=== PATIENT | male | born 1995 | race Caucasian/White ===

== ENCOUNTER 2018-11-05 12:30 | Emergency (ER) | payer OTHER ==
--- NOTE | 2018-11-05 13:10 | EDPHY ---
H & P Time Seen by Provider: 11/05/18 12:54 HPI/ROS: Chief complaint. Fever HPI. [age]-year-old male he was in the [facility] for 3 weeks. He returned to the [place] October 01. 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 He was exposed to mosquitos and did have at least 1 mosquito bite that he recalls. He was taking doxycycline while there and has continued for the 4 weeks since he has been back. He developed fever 2 nights ago. He has achiness and sweating. Fever to 102 degrees. Denies upper respiratory symptoms , sore throat, cough, abdominal pain, vomiting or diarrhea, shortness of breath , urinary symptoms, rash. Patient is concerned about malaria. Patient denies recent exposure to Infectious Disease. ROS 10 systems were reviewed and negative with the exception of the elements mentioned in the history of present illness Past Medical/Surgical History: Healthy Social History: Single, nonsmoker, no alcohol Smoking Status: Never smoked Physical Exam: General Appearance: Alert well-developed male mild distress vital signs show temp 37.2 degrees Eyes: Pupils equal and round no pallor or injection. ENT, tympanic membranes normal. Pharynx without injection. Respiratory: There are no retractions, lungs are clear to auscultation. Cardiovascular: Regular rate and rhythm. Gastrointestinal: Abdomen is soft and nontender, no masses, bowel sounds normal. Neurological: Awake and alert, sensory and motor exams grossly normal. Skin: Warm and dry, no rashes. Musculoskeletal: Neck is supple nontender. Extremities symmetrical, full range of motion. Psychiatric: Patient is oriented X 3, there is no agitation. Constitutional: Initial Vital Signs Temperature (C) 37.2 C 11/05/18 12:33 Heart Rate 81 11/05/18 12:33 Respiratory Rate 19 11/05/18 12:33 Blood Pressure 157/78 H 11/05/18 12:33 O2 Sat (%) 92 11/05/18 12:33 O2 Delivery Mode Room Air Allergies/Adverse Reactions: No Known Allergies Allergy (Unverified 11/05/18 12:33) Home Medications: Medication Instructions Recorded Doxycycline Calcium 11/05/18 Medical Decision Making - Diagnostics Imaging Results: Imaging Impressions Chest X-Ray 11/05/18 13:09 Impression: Clear lungs. Negative portable chest. Chest x-ray interpreted by me is normal Procedures: Ibuprofen in the ED ED Course/Re-evaluation: Re-evaluation 3:00 p.m.. Patient is stable. Patient and I discussed imaging and lab results. We discussed treatment plan including criteria for return importance of follow-up and further evaluation. He expresses understanding and agreement I consulted discussed case with Dr. Torres for Infectious Disease. They will see the patient in follow-up Differential Diagnosis: I considered malaria, dating the, influenza, viral syndrome. The patient has been back for [address] [facility] making his travel less likely as etiology of fever. - Data Points Laboratory Results: Laboratory Results 11/05/18 13:30 11/05/18 13:30 11/05/18 11/05/18 11/05/18 14:10 13:50 13:30 WBC RBC Hgb Hct MCV MCH MCHC RDW Plt Count MPV Neut % (Auto) Lymph % (Auto) Hyde % (Auto) Eos % (Auto) Baso % (Auto) Nucleat RBC Rel Count Absolute Neuts (auto) Absolute Lymphs (auto) Absolute Monos (auto) Absolute Eos (auto) Absolute Basos (auto) Absolute Nucleated RBC Immature Gran % Immature Gran # PT INR APTT VBG Lactic Acid Sodium Potassium Chloride Carbon Dioxide Anion Gap BUN Creatinine Estimated GFR Glucose Calcium Total Bilirubin Conjugated Bilirubin Unconjugated Bilirubin AST ALT Alkaline Phosphatase Total Protein Albumin Urine Color YELLOW Urine Appearance CLEAR Urine pH 6.0 (5.0-7.5) Ur Specific [place] 1.016 (1.002-1.030) Urine Protein NEGATIVE (NEGATIVE) Urine Ketones NEGATIVE (NEGATIVE) Urine Blood 1+ H (NEGATIVE) Urine Nitrate NEGATIVE (NEGATIVE) Urine Bilirubin NEGATIVE (NEGATIVE) Urine Urobilinogen NEGATIVE EU EU (0.2-1.0) Ur Leukocyte Esterase NEGATIVE (NEGATIVE) Urine RBC 1-3 /hpf /hpf (0-3) Urine WBC 0-1 /hpf /hpf (0-3) Ur Epithelial Cells NONE SEEN /lpf /lpf (NONE-1+) Urine Mucus TRACE /lpf /lpf (NONE-1+) Urine Glucose NEGATIVE (NEGATIVE) Nasal Influenza A PCR NEGATIVE FOR FLU A (NEGATIVE) Nasal Influenza B PCR NEGATIVE FOR FLU B (NEGATIVE) Malaria Smear NONE SEEN (NONE SEEN) Malaria Sm Path Review Pending 11/05/18 11/05/18 11/05/18 13:30 13:30 13:30 WBC 4.03 10^3/uL 10^3/uL (3.80-9.50) RBC 5.02 10^6/uL 10^6/uL (4.40-6.38) Hgb 16.1 g/dL g/dL (13.7-17.5) Hct 46.0 % % (40.0-51.0) MCV 91.6 fL fL (81.5-99.8) MCH 32.1 pg pg (27.9-34.1) MCHC 35.0 g/dL g/dL (32.4-36.7) RDW 12.5 % % (11.5-15.2) Plt Count 171 10^3/uL 10^3/uL (150-400) MPV 10.4 fL fL (8.7-11.7) Neut % (Auto) 64.1 % % (39.3-74.2) Lymph % (Auto) 16.6 % % (15.0-45.0) Hyde % (Auto) 18.6 % H % (4.5-13.0) Eos % (Auto) 0.0 % L % (0.6-7.6) Baso % (Auto) 0.2 % L % (0.3-1.7) Nucleat RBC Rel Count 0.0 % % (0.0-0.2) Absolute Neuts (auto) 2.58 10^3/uL 10^3/uL (1.70-6.50) Absolute Lymphs (auto) 0.67 10^3/uL L 10^3/uL (1.00-3.00) Absolute Monos (auto) 0.75 10^3/uL 10^3/uL (0.30-0.80) Absolute Eos (auto) 0.00 10^3/uL L 10^3/uL (0.03-0.40) Absolute Basos (auto) 0.01 10^3/uL L 10^3/uL (0.02-0.10) Absolute Nucleated RBC 0.00 10^3/uL 10^3/uL (0-0.01) Immature Gran % 0.5 % % (0.0-1.1) Immature Gran # 0.02 10^3/uL 10^3/uL (0.00-0.10) PT 12.8 SEC SEC (12.0-15.0) INR 1.00 (0.83-1.16) APTT 29.8 SEC SEC (23.0-38.0) VBG Lactic Acid Sodium 136 mEq/L mEq/L (135-145) Potassium 4.3 mEq/L mEq/L (3.5-5.2) Chloride 100 mEq/L mEq/L (97-110) Carbon Dioxide 26 mEq/l mEq/l (22-31) Anion Gap 10 mEq/L mEq/L (6-14) BUN 14 mg/dL mg/dL (7-23) Creatinine 1.0 mg/dL mg/dL (0.7-1.3) Estimated GFR > 60 Glucose 90 mg/dL mg/dL (70-100) Calcium 9.2 mg/dL mg/dL (8.5-10.4) Total Bilirubin 0.6 mg/dL mg/dL (0.1-1.4) Conjugated Bilirubin 0.1 mg/dL mg/dL (0.0-0.5) Unconjugated Bilirubin 0.5 mg/dL mg/dL (0.0-1.1) AST 44 IU/L IU/L (17-59) ALT 50 IU/L IU/L (21-72) Alkaline Phosphatase 73 IU/L IU/L (38-126) Total Protein 7.2 g/dL g/dL (6.3-8.2) Albumin 4.6 g/dL g/dL (3.5-5.0) Urine Color Urine Appearance Urine pH Ur Specific [place] Urine Protein Urine Ketones Urine Blood Urine Nitrate Urine Bilirubin Urine Urobilinogen Ur Leukocyte Esterase Urine RBC Urine WBC Ur Epithelial Cells Urine Mucus Urine Glucose Nasal Influenza A PCR Nasal Influenza B PCR Malaria Smear Malaria Path Review 11/05/18 13:30 WBC RBC Hgb Hct MCV MCH MCHC RDW Plt Count MPV Neut % (Auto) Lymph % (Auto) Hyde % (Auto) Eos % (Auto) Baso % (Auto) Nucleat RBC Rel Count Absolute Neuts (auto) Absolute Lymphs (auto) Absolute Monos (auto) Absolute Eos (auto) Absolute Basos (auto) Absolute Nucleated RBC Immature Gran % Immature Gran # PT INR APTT VBG Lactic Acid 0.9 mmol/L mmol/L (0.7-2.1) Sodium Potassium Chloride Carbon Dioxide Anion Gap BUN Creatinine Estimated GFR Glucose Calcium Total Bilirubin Conjugated Bilirubin Unconjugated Bilirubin AST ALT Alkaline Phosphatase Total Protein Albumin Urine Color Urine Appearance Urine pH Ur Specific [place] Urine Protein Urine Ketones Urine Blood Urine Nitrate Urine Bilirubin Urine Urobilinogen Ur Leukocyte Esterase Urine RBC Urine WBC Ur Epithelial Cells Urine Mucus Urine Glucose Nasal Influenza A PCR Nasal Influenza B PCR Malaria Smear Malaria Sm Path Review Medications Given: Discontinued Medications Ibuprofen (Motrin) 600 mg PO EDNOW ONE Stop: 11/05/18 13:22 Last Admin: 11/05/18 13:46 Dose: 600 mg Departure - Departure Disposition: Home, Routine, Self-Care Clinical Impression: Fever Condition: Good Instructions: Fever in Adults (ED) Additional Instructions: Drink plenty of fluids and stay hydrated. Get plenty of rest. Ibuprofen 600 mg every 6 hr, Tylenol 1000 mg every 6 hr for fever. May alternate these every 3 hr. Return for worsening symptoms Follow-up with Infectious Disease in the next 2-3 days. Referrals: NONE *PRIMARY CARE P,. [Primary Care Provider] - As per Instructions Luis Torres MD [Medical Doctor] - 2-3 days, if not improved
[2018-11-05] MEDS ORDERED: IBUPROFEN 600 MG TAB PO ONE (13:21)
[2018-11-05 13:50] LABS: PLATELET COUNT 171 10^3/uL (150-400)
[2018-11-05 13:58] LABS: PROTIME(PATIENT) 12.8 SEC (12.0-15.0)
[2018-11-05 14:53] LABS: MALARIAL PREP NONE SEEN (NONE SEEN)
[2018-11-05 15:32] VITALS: BP 134/81
== END 2018-11-05 15:32 | disposition home or self-care (01) ==
DX: R50.9 Fever, unspecified (principal)